=== PATIENT | female | born 1965 | race Caucasian/White ===

== ENCOUNTER 2016-04-18 22:16 | Emergency (ER) | payer BC, OTHER ==
[~2016-04-18] VITALS: Ht 170.2 cm; Wt 108.9 kg
[~2016-04-18 22:16] MED LIST: PRD20T PO
[2016-04-18] MEDS ORDERED: VENL150C PO (22:30)
[2016-04-18] MEDS ORDERED: RT-ALBUINH IH (22:30)
[2016-04-18] MEDS ORDERED: TRAM50TA2 PO (22:30)
--- NOTE | 2016-04-18 22:42 | ED Respiratory ---
General Chief Complaint: Respiratory Problems Stated Complaint: COUGH,WHEEZING,CONGESTION Nursing Triage Note: Pt c/o SOA starting today. Pt also reports non-productive cough x2-3 days. Source: patient Exam Limitations: no limitations History of Present Illness Time seen by provider: 22:29 Initial Comments Here with complaint of 2-3 days of upper respiratory congestion and nonproductive cough. Cough is worse today. She tried during her inhaler and that did not help. Has history of bronchitis requiring steroids. Timing/Duration: getting worse Severity: moderate Prior Episodes/Possible Cause: occasional episodes Modifying Factors: Improves With Albuterol Inhaler Associated Symptoms: coughNo fever/chills, nasal congestion shortness of breath wheezing Allergies and Home Medications Allergies Coded Allergies: acetaminophen (Unverified Allergy, Unknown, 05/29/15) oxycodone (Unverified Allergy, Unknown, 05/29/15) Home Medications Albuterol Sulfate 18 Gm Hfa.aer.ad 1-2 PUFF IH PRN (Reported) Tramadol HCl 50 Mg Tablet 100 MG PO DAILY (Reported) Venlafaxine HCl 150 Mg Cap.er.24h 150 MG PO DAILY (Reported) Constitutional: see HPINo chills, No fever EENTM: nose congestion see HPI Respiratory: cough short of breath Cardiovascular: no symptoms reported Genitourinary: no symptoms reported Musculoskeletal: no symptoms reported Skin: no symptoms reported Past Ozxzwnr-Cxuirg-Acftdm Hx Patient Social History Alcohol Use: Denies Use Recreational Drug Use: No Smoking Status: Current Everyday Smoker Type Used: Cigarettes Recent Foreign Travel: No Contact w/Someone Who Travel: No Recent Infectious Disease Expo: No Recent Hopitalizations: No Physical Abuse Screen: No Sexual Abuse: No Seasonal Allergies Seasonal Allergies: No Surgeries HX Surgeries: Yes (CARPAL TUNNEL) Surgeries: Appendectomy, Section, Hysterectomy, Orthopedic Respiratory Hx Respiratory Disorders: No Cardiovascular Hx Cardiac Disorders: No Neurological Hx Neurological Disorders: No Reproductive System Hx Reproductive Disorders: No Genitourinary Hx Genitourinary Disorders: Yes (URINARY FREQUENCY) Gastrointestinal Hx Gastrointestinal Disorders: No Musculoskeletal Hx Musculoskeletal Disorders: Yes (CHRONIC PAIN) Endocrine Hx Endocrine Disorders: No HEENT HX ENT Disorders: No Cancer Hx Cancer: No Psychosocial Hx Psychiatric Problems: No Reviewed Nursing Assessment Reviewed/Agree w Nursing PMH: Yes Family Medical History Significant Family History: No Pertinent Family Hx Physical Exam Vital Signs Vital Sign - Last 12Hours 04/18/16 22:23 Temp 97.5 Pulse 78 Resp 28 B/P 120/76 Pulse Ox 99 O2 Delivery Room Air Capillary Refill : Less Than 3 Seconds General Appearance: WD/WN no apparent distress HEENT: PERRL/EOMI pharynx normal Neck: full range of motion supple Respiratory: no accessory muscle useNo crackles, wheezing (few) Cardiovascular: regular rate, rhythm no murmur Gastrointestinal: non tender soft Neurologic/Psychiatric: alert oriented x 3 Skin: normal color warm/dry Progress/Results/Core Measures Results/Orders My Orders Orders-ROSAURA SHELTON MD Albuterol/Ipra Inhalation Soln (Duoneb I (04/18/16 22:45) Svn Sm Volume Nebulizer Rt-Rfs (04/18/16 22:31) Prednisone Tablet (Deltasone Tablet) (04/18/16 22:45) Medications Given in ED Current Medications Medications Dose Ordered Sig/Saroj Route Start Time Stop Time Status Last Admin Dose Admin Albuterol/ Ipratropium 3 ml ONCE ONCE INH 04/18/16 22:45 04/18/16 22:46 DC 04/18/16 22:39 3 ML Prednisone 40 mg ONCE ONCE PO 04/18/16 22:45 04/18/16 22:46 DC 04/18/16 22:36 40 MG Vital Signs/I&O Vital Sign - Last 12Hours 04/18/16 04/18/16 22:23 22:40 Temp 97.5 Pulse 78 Resp 28 B/P 120/76 Pulse Ox 99 100 O2 Delivery Room Air Room Air Blood Pressure Mean: 91 Progress Note : Progress Note Seen and evaluated. Prednisone 40 mg by mouth. Duo neb ordered. Improved afterwards. Discharged home with return precautions. Patient verbalize understanding instructions and agreement with plan. Departure Impression Impression: Primary Impression: Asthmatic bronchitis Qualified Code: J45.21 - Mild intermittent asthma with (acute) exacerbation Disposition: 01 HOME, SELF-CARE Condition: Improved Departure-Patient Inst. Decision time for Depature: 23:08 Referrals: BETSY SOLIMAN MD (PCP/Family) Primary Care Physician Patient Instructions: Acute Bronchitis, Adult (DC) Add. Discharge Instructions: All discharge instructions reviewed with patient and/or family. Voiced understanding. Take medications as directed. Follow-up with your DrRandi in a few days for recheck. Return for worse pain, fever, vomiting, weakness, breathing problems or other concerns as needed. You may use Afrin nasal spray or the generic, 12 hour relief, 2 sprays to each nostril twice daily for 3 days only and then stop. Scripts Prednisone 20 Mg Tab40 Mg PO DAILY #12 TAB Ref 0 Prov:ROSAURA SHELTON MD 04/18/16 Work/School Note: Work Release Form Date Seen in the Emergency Department: Apr 18, 2016 Return to Work: Apr 20, 2016 Restrictions: No Restrictions ROSAURA SHELTON MD Apr 18, 2016 22:42
[2016-04-18] MEDS ORDERED: RT-ALBUTEROL/IPRATROPIUM 3 ML (DUONEB) VIAL INH ONE (22:45)
[2016-04-18] MEDS ORDERED: predniSONE 20 MG TAB PO ONE (22:45)
[2016-04-18] MEDS ORDERED: PRD20T PO (23:09)
[2016-04-18 23:13] VITALS: BP 120/76
== END 2016-04-18 23:13 | disposition home or self-care (01) ==
LOC: EDUNIT# 22:16 → ER 22:17
DX: J45.901 Unspecified asthma with (acute) exacerbation (principal); F17.210 Nicotine dependence, cigarettes, uncomplicated
CPT/HCPCS: 94640; 99283

== ENCOUNTER → 2016-04-23 | Outpatient (CLI) | payer BC, OTHER ==
[~2016-04-23] MED LIST changes: +RT-ALBUINH IH; +TRAM50TA2 PO; +VENL150C PO
--- OUTSIDE RECORDS SUMMARY | 2016-04-23 07:47 | XMS REPORT | Continuity of Care Document ---
Author Author [facility] Organization [facility] Address Unknown Phone Unavailable Care Team Providers Care Bullet Maker Name Role Phone BETSY SOLIMAN MD PCP Insurance Providers Payer Name Policy Number Subscriber [id number] Josselyn Raya Self / Same As Patient Advance Directives Directive Response Recorded Date/Time Advance Directives No 04/18/16 10:23pm Resuscitation Status Full Code 04/18/16 10:23pm Chief Complaint and Reason for Visit Chief Complaint Respiratory Problems Reason for Visit Asthmatic bronchitis Problems Active Problems Medical Problem Onset Date Status Asthmatic bronchitis Unknown Acute Medications Current Home Medications Medication Dose Units Route Directions Days/Qty Instructions Start Date Tramadol Hcl 50 Mg 100 Mg Oral Daily 04/18/16 Venlafaxine Hcl 150 Mg 150 Mg Oral Daily 04/18/16 Albuterol Sulfate 18 Gm 1-2 Puff Inhalation As Needed 04/18/16 Prednisone 20 Mg 40 Mg Oral Daily 12 04/18/16 Past Home Medications Medication Directions Ordered Status Prednisone 20 Mg Tab, 20 Mg Oral Three Times A Day 05/30/15 Discontinued Social History Social History Problem Response Recorded Date/Time Alcohol Use Denies Use 05/29/2015 11:45pm Recreational Drug Use No 05/29/2015 11:45pm Recent Foreign Travel No 04/18/2016 10:23pm Recent Infectious Disease Exposure No 04/18/2016 10:23pm Smoking Status Current Everyday Smoker 04/18/2016 10:23pm Type Used Cigarettes 04/18/2016 10:23pm Recent Hopitalizations No 04/18/2016 10:23pm Query Response Start Date Stop Date Smoking Status Current Everyday Smoker Hospital Discharge Instructions No hospital discharge instructions. Plan of Care Discharge Date 04/18/16 11:13pm Disposition 01 HOME, SELF-CARE Condition at Discharge Improved Instructions/Education Provided Acute Bronchitis, Adult (DC) Forms Provided Work Release Form Prescriptions See Medication Section Referrals BETSY SOLIMAN MD - Primary Care Physician Additional Instructions/Education All discharge instructions reviewed with patient and/or family. Voiced understanding. Take medications as directed. Follow-up with your Dr. in a few days for recheck. Return for worse pain, fever, vomiting, weakness, breathing problems or other concerns as needed. You may use Afrin nasal spray or the generic, 12 hour relief, 2 sprays to each nostril twice daily for 3 days only and then stop. Functional Status No functional status results. Allergies, Adverse Reactions, Alerts Allergen Type Severity Reaction Status Last Updated Oxycodone Allergy Unknown Active 05/29/15 Acetaminophen Allergy Unknown Active 05/29/15 Immunizations No immunization records. Vital Signs Acute Vital Signs Vital Response Date/Time Temperature (Fahrenheit) 97.5 degrees F (97.6 - 99.5) 04/18/2016 10:23pm Temperature (Calculated Celsius) 36.04649 degrees C (36.4 - 37.5) 04/18/2016 10:23pm Temperature Source Temporal 04/18/2016 10:23pm Pulse Rate (adult) 78 bpm (60 - 90) 04/18/2016 10:23pm Respiratory Rate 28 bpm (12 - 24) 04/18/2016 10:23pm O2 Sat by Pulse Oximetry 100 % (88 - 100) 04/18/2016 10:40pm Blood Pressure 120/76 mm Hg 04/18/2016 10:23pm Blood Pressure Mean 91 mm Hg 04/18/2016 10:23pm Pain Height (Feet) 5 feet 04/18/2016 10:23pm Height (Inches) 7 inches 04/18/2016 10:23pm Height (Calculated Centimeters) 170.708318 cm 04/18/2016 10:23pm Weight (Pounds) 240 pounds 04/18/2016 10:23pm Weight (Calculated Kilograms) 108.743659 kilograms 04/18/2016 10:23pm Capillary Refill Capillary Refill Less Than 3 Seconds 04/18/2016 10:23pm Height 5 ft 7 in Weight 240 lb Body Mass Index 37.6 kg/m^2 Results No known relevant diagnostic tests, laboratory data and/or discharge summary. Procedures No known history of procedures. Encounters Encounter Location Arrival/Admit Date Discharge/Depart Date Attending Provider Departed Emergency Room [facility] 04/18/16 10:17pm 02/22 11:13pm ROSAURA SHELTON MD Recent Diagnosis
--- NOTE | 2016-04-23 14:36 | Diagnostic Imaging Report ---
EXAMINATION: Right breast ultrasound. INDICATION: Right breast lump. FINDINGS: The 4 quadrants and retroareolar region were scanned in the right breast with no underlying abnormality seen. IMPRESSION: Negative study. Clinical followup recommended. BI-RADS 1. ACR BI-RADS Category 1: Negative. Dictated by: Dictated on workstation # [id number]
--- NOTE | 2016-04-23 16:05 | Diagnostic Imaging Report ---
Exam: Bilateral diagnostic mammogram. The current study was also evaluated with a Computer Aided Detection (CAD) system. Indication: Palpable lumps in the medial and lateral aspects of the right breast. Findings: The breasts are composed of scattered fibroglandular densities. There is no mass, architectural distortion or suspicious calcification seen. Impression: No mammographic evidence of malignancy. Ultrasound evaluation is pending. BI-RADS 0. ACR BI-RADS Category 0: Incomplete. (Needs additional imaging evaluation). Result letter will be mailed to the patient. Note: At least 10% of breast cancer is not imaged by mammography. Dictated by: Dictated on workstation # [id number]
== END ==
LOC: RAD 07:43
PROVIDERS: ATTEND Obstetrics & Gynecology
DX: N63 Unspecified lump in breast (principal)

== ENCOUNTER → 2016-10-15 | Outpatient (CLI) | payer BC | LOC: RAD 13:40 | PROVIDERS: ATTEND Nurse Practitioner Family | DX: M54.41 Lumbago with sciatica, right side (principal) ==

== ENCOUNTER → 2016-11-01 | Outpatient (CLI) | payer BC ==
--- NOTE | 2016-11-01 16:27 | Diagnostic Imaging Report ---
PROCEDURE: MRI lumbar spine. TECHNIQUE: Multiplanar, multisequence MRI of the lumbar spine was performed without contrast. INDICATION: Fall. Back pain. FINDINGS: The alignment of the lumbar spine is satisfactory. The vertebral body heights are preserved. There is mild disc height loss at L4-L5. No suspicious bone marrow signal is seen. The cauda equina and conus medullaris appear grossly unremarkable. L1-L2: There is an extruded small right paracentral disc that is displaced in a cranial direction along the anterior epidural space. This is not associated with spinal canal stenosis. No foraminal narrowing. L2-L3: There is a minimal disc bulge and ayks-ya-mfwlmlsw facet hypertrophy. No central canal, lateral recess or foraminal stenosis. L3-L4: There is no disc herniation. There is moderate facet hypertrophy. No central canal or lateral recess stenosis. There is mild foraminal narrowing only on the left side. L4-L5: There is a mild diffuse disc bulge and moderate facet hypertrophy. No central canal stenosis. There is mild lateral recess stenosis only on the left side. The foramina demonstrate moderate stenosis on the left and minimal stenosis on the right side. L5-S1: There is an asymmetric disc bulge more prominent to the right side aspect. There is mild facet hypertrophy. No central canal or lateral recess stenosis. There is iljyybtx-zi-eppiwj foraminal stenosis on the right side and moderate foraminal stenosis on the left. There is an extraforaminal component of the disc on the right side abutting the existing right L5 spinal nerve as it exits the foramen. IMPRESSION: There is overall relatively mild disc degenerative disease with no significant spinal canal stenosis at any level. Multilevel foraminal narrowing is seen most prominent on the right side at L5-S1. Dictated by: Dictated on workstation # [id number]
== END ==
LOC: RAD 13:18
PROVIDERS: ATTEND Nurse Practitioner Family
DX: M48.06 Spinal stenosis, lumbar region (principal)
CPT/HCPCS: 72148

== ENCOUNTER 2016-11-14 15:00 | Outpatient (RCR) | payer BC | END 2016-11-21 16:25 | disposition home or self-care (01) | PROVIDERS: ATTEND Nurse Practitioner Family | DX: M54.6 Pain in thoracic spine (principal); M54.41 Lumbago with sciatica, right side ==